=== PATIENT | male | born 2000 | race Two or more races ===

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

== ENCOUNTER 2023-03-10 12:22 | Emergency (ER) | payer OTHER ==
[2023-03-10 13:45] VITALS: BP 137/77
[2023-03-10] MEDS ORDERED: IBUP400T22 PO (16:24)
[2023-03-10] MEDS ORDERED: CYCL-839 PO (16:24)
[2023-03-10] MEDS ORDERED: MUPI2OIN2 EX (16:24)
[2023-03-10] MEDS ORDERED: CEPH-510 PO (16:24)
== END 2023-03-10 16:25 | disposition home or self-care (01) ==
LOC: ER 12:22
DX: S76.012A Strain of muscle, fascia and tendon of left hip, initial encounter (principal); S13.4XXA Sprain of ligaments of cervical spine, initial encounter; S33.5XXA Sprain of ligaments of lumbar spine, initial encounter; S83.92XA Sprain of unspecified site of left knee, initial encounter; S63.92XA Sprain of unspecified part of left wrist and hand, initial encounter; S63.502A Unspecified sprain of left wrist, initial encounter; S09.90XA Unspecified injury of head, initial encounter; V29.99XA Rider (driver) (passenger) of other motorcycle injured in unspecified traffic accident, initial encounter; Y93.89 Activity, other specified; Y92.89 Other specified places as the place of occurrence of the external cause; Y99.8 Other external cause status
CPT/HCPCS: 70450; 72100; 72125; 73130; 73502; 73562